=== PATIENT | female | born 1965 | race Two or more races ===

== ENCOUNTER 2017-06-23 19:31 | Emergency (ER) | payer MEDICAID ==
[~2017-06-23] VITALS: Ht 160 cm; Wt 72.6 kg
[~2017-06-23 19:31] MED LIST: METO50TA7 PO
--- NOTE | 2017-06-23 19:48 | NUR ---
BIBSELF C/O MIDSTERNAL CHEST PAIN RADIATING TO THROAT ON AND OFF X 2 YEARS. PATIENT AMBULATED TO ER BED WITH STEADY AGIT, SKIN WARM AND DRY, RESP EVEN AND UNLABORED. PATIENT GOWNED,PLACED ON REPAIR WELDER. AWAITING ORDERS FROM PROVIDER, WILL CONTINUE TO MONITOR
[2017-06-23] MEDS ORDERED: NITROGLYCERIN PACKET 1 GM PACKET ONE ×2 (19:51→20:03)
[2017-06-23] MEDS ORDERED: ASPIRIN 325 MG TABLET ONE (19:51)
[2017-06-23] MEDS ORDERED: ASPIRIN 325 MG TABLET PO ONE (20:00)
[2017-06-23] MEDS ORDERED: NITROGLYCERIN PACKET 1 GM PACKET TD ONE (20:00)
--- NOTE | 2017-06-23 20:01 | NUR ---
20G RIGHT HAND IV STARTED, BLOOD SAMPLE OBTAINED AND SENT TO LAB. MEDICATED PT ORDERED
[2017-06-23 20:14] LABS: CALCIUM, SERUM 8.9 mg/dL (8.5-10.1); CARBON DIOXIDE 29 mmol/L (21-32); CHLORIDE 106 mmol/L (98-107); GLUCOSE 130 mg/dL (74-106); POTASSIUM 3.9 mmol/L (3.5-5.1); SODIUM SERUM 141 mmol/L (136-145); UREA NITROGEN, BLOOD 21 mg/dL (7-18)
[2017-06-23 20:17] LABS: INR 0.9 (0.85-1.15)
[2017-06-23 20:21] LABS: TROPONIN I < 0.017 ng/mL (0.00-0.056)
[2017-06-23 20:37] LABS: BASOPHILS % (AUTO) 0.4 % (0.0-2.0); EOSINOPHILS % (AUTO) 1.7 % (0.0-6.0); HEMATOCRIT 37 % (33-45); HEMOGLOBIN 12.7 g/dL (11.5-14.8); LYMPHOCYTES # (AUTO) 2.1 /CMM (0.8-4.8); LYMPHOCYTES % (AUTO) 31.2 % (20.0-44.0); MEAN CORPUSCULAR HGB CONC 35 g/dl (31.0-36.0); MEAN CORPUSCULAR VOLUME 86 fL (82-100); MONOCYTES # (AUTO) 0.6 /CMM (0.1-1.30); MONOCYTES % (AUTO) 9.1 % (2.0-12.0); NEUTROPHILS # (AUTO) 3.8 /CMM (1.8-8.9); NEUTROPHILS % (AUTO) 57.6 % (43.0-81.0); PLATELET COUNT (AUTO) 265 /CMM (150-450); RDW COEFFICIENT OF VARIATION 14.1 (11.5-15.0); RED BLOOD CELL COUNT(AUTO) 4.29 MIL/uL (4.0-5.2); WHITE BLOOD COUNT (AUTO) 6.6 K/uL (4.3-11.0)
--- NOTE | 2017-06-23 21:44 | NUR ---
Patient discharged to home in stable condition. Written and verbal after care instructions given. Patient verbalizes understanding of instruction.
--- NOTE | 2017-06-23 21:44 | NUR ---
IV removed. Catheter intact and site benign. Pressure and 4x4 applied to site. No bleeding noted.
[2017-06-23 21:46] VITALS: BP 150/77
== END 2017-06-23 21:46 | disposition home or self-care (01) ==
LOC: ER 19:32
DX: R07.89 Other chest pain (principal); I10 Essential (primary) hypertension; Z86.73 Personal history of transient ischemic attack (TIA), and cerebral infarction without residual deficits
CPT/HCPCS: 36415; 71045-TC; 80048-TC; 84484-TC; 85025-TC; 85730-TC; 87081-TC; A4606; Z7610

== ENCOUNTER 2019-04-07 14:21 | Emergency (ER) | payer MEDICAID ==
[~2019-04-07] VITALS: Ht 162.6 cm; Wt 73.5 kg
--- NOTE | 2019-04-07 14:25 | NUR ---
CAME IN FOR CHEST DISCOMFORT, "I FEEL LIKE MY HEART IS BEATING FAST AND MY MOUTH FEELS NUMB." TO ER BED 10, HOOKED TO MONITOR, CHANGED TO HOSP GOWN, PROVIDED W WARM BLANKET, PATIENT AOx4, BREATHING EVEN AND UNLABORED. AWAITING MD MOSQUEDA
--- NOTE | 2019-04-07 14:40 | NUR ---
DR CANSECO AT BEDSIDE
[2019-04-07 15:00] LABS: BASOPHILS % (AUTO) 0.5 % (0.0-2.0); EOSINOPHILS % (AUTO) 1.2 % (0.0-6.0); HEMATOCRIT 39 % (33-45); HEMOGLOBIN 12.9 g/dL (11.5-14.8); LYMPHOCYTES % (AUTO) 34.8 % (20.0-44.0); MEAN CORPUSCULAR HGB CONC 33 g/dl (31.0-36.0); MEAN CORPUSCULAR VOLUME 88 fL (82-100); MONOCYTES # (AUTO) 0.5 /CMM (0.1-1.30); MONOCYTES % (AUTO) 9.1 % (2.0-12.0); NEUTROPHILS # (AUTO) 3.1 /CMM (1.8-8.9); NEUTROPHILS % (AUTO) 54.4 % (43.0-81.0); PLATELET COUNT (AUTO) 256 /CMM (150-450); RED BLOOD CELL COUNT(AUTO) 4.44 MIL/uL (4.0-5.2); WHITE BLOOD COUNT (AUTO) 5.7 K/uL (4.3-11.0)
--- NOTE | 2019-04-07 15:12 | NUR ---
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
[2019-04-07 15:13] LABS: CALCIUM, SERUM 8.7 mg/dL (8.5-10.1); CARBON DIOXIDE 28 mmol/L (21-32); CHLORIDE 108 mmol/L (98-107); CREATININE 0.8 mg/dL (0.6-1.3); GLUCOSE 93 mg/dL (74-106); POTASSIUM 4.1 mmol/L (3.5-5.1); SODIUM SERUM 144 mmol/L (136-145); UREA NITROGEN, BLOOD 22 mg/dL (7-18)
[2019-04-07 15:18] LABS: ALANINE AMINOTRANSFERASE 13 U/L (12-78); ALBUMIN 3.7 g/dL (3.4-5.0); ALKALINE PHOSPHATASE 38 U/L (46-116); ASPARTATE AMINOTRANSFERASE 11 U/L (15-37); BILIRUBIN,TOTAL 0.2 mg/dL (0.2-1.0); TOTAL PROTEIN, SERUM 6.8 g/dL (6.4-8.2)
[2019-04-07 15:55] VITALS: BP 151/92
--- NOTE | 2019-04-07 15:55 | NUR ---
Patient discharged to home in stable condition. Written and verbal after care instructions given. Patient verbalizes understanding of instruction.
== END 2019-04-07 15:56 | disposition home or self-care (01) ==
LOC: ER 14:24
DX: R00.2 Palpitations (principal); I10 Essential (primary) hypertension; F32.9 Major depressive disorder, single episode, unspecified; Z86.73 Personal history of transient ischemic attack (TIA), and cerebral infarction without residual deficits; Z79.899 Other long term (current) drug therapy
CPT/HCPCS: 36415; 71045-TC; 80048-TC; 80076-TC; 84484-TC; 85025-TC

== ENCOUNTER 2022-03-27 10:26 | Emergency (ER) | payer MEDICAID ==
[~2022-03-27] VITALS: Ht 160 cm; Wt 77.1 kg
--- NOTE | 2022-03-27 11:02 | NUR ---
PT C/O CHEST PAIN 10/10 A/O X4 ENDORES RADIATION TO THE BACK. 20G LAC SALINE LOCK BLOOD DRAWN AT BED SIDE. CHEST X RAY BEDSIDE
[2022-03-27 11:57] VITALS: BP 150/75
== END 2022-03-27 11:58 | disposition home or self-care (01) ==
LOC: ER 10:27
DX: S80.12XA Contusion of left lower leg, initial encounter (principal); I10 Essential (primary) hypertension; F32.A Depression, unspecified; Z79.899 Other long term (current) drug therapy; W01.0XXA Fall on same level from slipping, tripping and stumbling without subsequent striking against object, initial encounter; Y93.89 Activity, other specified; Y92.002 Bathroom of unspecified non-institutional (private) residence as the place of occurrence of the external cause; Y99.8 Other external cause status
CPT/HCPCS: 71045-TC; 72110-TC

== ENCOUNTER → 2024-03-20 | Emergency (ER) | payer MEDICAID | LOC: ER 14:06 | DX: M54.89 Other dorsalgia (principal); Z53.21 Procedure and treatment not carried out due to patient leaving prior to being seen by health care provider ==